=== PATIENT | male | born 1935 | race Caucasian/White ===

== ENCOUNTER 2016-07-17 14:01 | Day surgery (SDC) | payer OTHER ==
[2016-07-17] MEDS ORDERED: LIDOCAINE 1% 2 ML INJ ONE (14:14)
[2016-07-17] MEDS ORDERED: PROPOFOL 200 MG/20 ML VIAL ONE (15:21)
[2016-07-17] MEDS ORDERED: LIDOCAINE 2% 100 MG/5 ML SYR ONE (15:21)
[2016-07-17] MEDS ORDERED: fentaNYL 100 MCG/2 ML INJ ONE (15:21)
[2016-07-17] MEDS ORDERED: ROCURONIUM 50 MG/5 ML VIAL ONE (15:21)
[2016-07-17] MEDS ORDERED: MIDAZOLAM 2 MG/2 ML VIAL ONE (15:23)
--- NOTE | 2016-07-17 22:06 | GPN ---
[f rep st] PROCEDURE NOTE DATE OF PROCEDURE: 07/17/2016 PROCEDURE: Esophagogastroduodenoscopy with biopsy, endoscopic ultrasound with fine-needle aspiration. INDICATION: The patient is an 81-year-old male who was diagnosed with a squamous oropharyngeal cancer cell who had a recent PET scan which showed a possible pancreatic lesion. He presents for further evaluation. CONSENT: Risks, benefits, and alternatives of the procedure were discussed in great detail with the patient. Risk of infection, bleeding, perforation, sedation and pancreatitis were discussed. All questions answered and informed consent was obtained. MEDICATIONS: General. Please see Anesthesia for details. ESTIMATED BLOOD LOSS: Insignificant. ESOPHAGOGASTRODUODENOSCOPY EXAMINATION: The Olympus upper endoscope was introduced into the mouth and advanced to the esophagus. The proximal, mid and distal esophagus were normal in appearance. The stomach was entered and closely examined, including retroflexed views of the angularis, cardia, fundus. The patient was noted to have a hiatal hernia. Multiple sessile, medium sized polyps were seen around the greater curvature of the stomach. Biopsies were taken. The mucosa in the antrum and body of the stomach was nodular and biopsies were taken. The duodenal bulb and second portion of duodenum were normal in appearance. ENDOSCOPIC ULTRASOUND EXAMINATION: The Olympus linear echoendoscope was introduced into the mouth and advanced to the second portion of the duodenum. The pancreas was carefully examined from the uncinate process to the tail where the spleen was seen. Dilated side branches as well as hyperechoic foci were noted throughout the pancreas. In the body of the pancreas a 3 x 3 cm, hypoechoic mass with ill defined margins was seen. The mass was located close to the splenic artery and splenic vein but no invasion was noted. Doppler was used to rule out intervening vessels. Two transgastric passes were made with 25 gauge needle. Cytology was present and preliminary report is positive for malignancy. No obvious liver lesions were seen. The common bile duct was without stone, stricture or stenosis. No periportal, peripancreatic or perigastric lymph nodes were appreciated. IMPRESSION: 1. Pancreatic lesion- body. FNA performed and preliminary report is positive for malignancy. 2. Gastritis, status post biopsy. 3. Gastric polyps. Biopsies taken. RECOMMENDATIONS: 1. Follow up on biopsy results. 2. Follow up on FNA. 3. Follow up Oncology. /[id number]/MODL MTDD
--- NOTE | 2016-07-20 15:21 | PDGENHP ---
History and Physical History and Physical: This document created for testing purposes only. Please disregard.
== END 2016-07-17 17:30 | disposition home or self-care (01) ==
LOC: FSGY 14:01
PROVIDERS: ATTEND Internal Medicine Gastroenterology
DX: C78.89 Secondary malignant neoplasm of other digestive organs (principal); C10.9 Malignant neoplasm of oropharynx, unspecified; K29.70 Gastritis, unspecified, without bleeding; K31.7 Polyp of stomach and duodenum; K44.9 Diaphragmatic hernia without obstruction or gangrene; K21.9 Gastro-esophageal reflux disease without esophagitis; I10 Essential (primary) hypertension
CPT/HCPCS: J2001; J2250; J2704; J3010